=== PATIENT | female | born 1970 | race Caucasian/White ===

== ENCOUNTER 2017-04-07 12:43 | Emergency (ER) | payer BC ==
[2017-04-07 12:47] VITALS: BP 146/89; PULSE 68; RESP 20; TEMP 98.1
--- NOTE | 2017-04-07 13:01 | ED ---
Lower Extremity Injury HPI - General Chief Complaint: Extremity Injury, Lower Stated Complaint: Leg Pain Time Seen by Provider: 04/07/17 12:48 Source: patient, RN notes reviewed Mode of arrival: ambulatory Limitations: no limitations - History of Present Illness Initial Comments: 46-year-old female presents emergency department chief complaint of left hip pain. Patient states she was noted She landed onto her left leg and she felt a pop in her left hip. Patient with walking and pain with certain range of motion of the left hip. Patient states she is able to walk but with an increased swelling to that left hip. Patient states she did not hit her head and there is no other injuries that occurred. Patient states she was concerned due to her pain and discomfort so she thought that she should be evaluated. Patient denies any recent fever, chills, shortness of breath, chest pain, back pain, abdominal pain, nausea vomiting, numbness or tingling, dysuria or hematuria, constipation or diarrhea, headaches or visual changes, or any other current symptoms. - Related Data Home Medications Medication Instructions Recorded Confirmed Hydrochlorothiazide [Hydrodiuril] 25 mg PO DAILY 04/07/17 04/07/17 Ibuprofen [Advil] 200 mg PO Q8HR PRN 04/07/17 04/07/17 Metoprolol Succinate [Toprol XL] 50 mg PO DAILY 04/07/17 04/07/17 Previous Rx's Medication Instructions Recorded Ibuprofen [Motrin] 600 mg PO Q6HR PRN #20 tab 04/07/17 Allergies Allergy/AdvReac Type Severity Reaction Status Date / Time amoxicillin Allergy Unknown SKIN Verified 04/07/17 13:02 TURNED VERY RED codeine AdvReac Rash/Hives Verified 04/07/17 13:02 Penicillins AdvReac Nausea Verified 04/07/17 13:02 Review of Systems ROS Statement: Those systems with pertinent positive or pertinent negative responses have been documented in the HPI. ROS Other: All systems not noted in ROS Statement are negative. Past Medical History Past Medical History: No Reported History History of Any Multi-Drug Resistant Organisms: None Reported Past Surgical History: Section Past Psychological History: No Psychological Hx Reported Smoking Status: Current every day smoker Past Alcohol Use History: None Reported Past Drug Use History: None Reported General Exam - General Exam Comments Initial Comments: General: The patient is awake and alert, in no distress, and does not appear acutely ill. Neck: The neck is supple, there is no tenderness. Cardiovascular: There is a regular rate and rhythm. No murmur, rub or gallop is appreciated. Respiratory: Lungs are clear to auscultation, respirations are non-labored, breath sounds are equal. No wheezes, stridor, rales, or rhonchi. Musculoskeletal: Sensation intact to plus pulses of the left flexion. Full range motion of left foot and ankle. Patient was found motion left knee. Patient has limited range of motion left hip due to pain. She will not fully internally rotate the hip and has pain with the extremes of external rotation. He has full flexion and extension. Patient states that when she stands it feels almost that they are uneven. She does have tenderness to palpation in the gluteal region. Neurological: CN II-XII intact, There are no obvious motor or sensory deficits. Coordination appears grossly intact. Speech is normal. Skin: Skin is warm and dry and no rashes or lesions are noted. Psychiatric: Normal mood and affect. Limitations: no limitations Course Vital Signs 04/07/17 12:44 Temperature 98.1 F Pulse Rate 68 Respiratory 20 Rate Blood Pressure 146/89 O2 Sat by Pulse 97 Oximetry Medical Decision Making - Medical Decision Making 46-year-old female presents emergency room chief complaint of left hip pain. This time patient's x-rays reviewed and negative. At this time we did discuss patient most of his left hip sprain. We'll give her crutches due to her pain with walking. We did also give her follow-up dorsal return parameters all the questions have been answered. She stated that she understood and she is planned. She will be discharged. - Radiology Data Radiology results: report reviewed, image reviewed Disposition Clinical Impression: Sprain of left hip Disposition: HOME SELF-CARE Condition: Stable Instructions: Hip Sprain (ED) Additional Instructions: Please use medication as discussed. Please follow up with family doctor if symptoms have not improved over the next two days. Please return to the emergency room if your symptoms increase or worsen or for any other concerns. Prescriptions: Ibuprofen [Motrin] 600 mg PO Q6HR PRN #20 tab PRN Reason: Pain Referrals: Daniel Sr DO [Primary Care Provider] - 1-2 days Time of Disposition: 13:34
--- NOTE | 2017-04-07 13:29 | XR ---
EXAMINATION TYPE: XR Hip LT and AP Pelvis DATE OF EXAM: 04/07/2017 COMPARISON: NONE HISTORY: Left hip pain following fall TECHNIQUE: AP pelvis and 2 views left hip FINDINGS: Femoral heads articulate with the acetabulum. Symphysis pubis and sacroiliac joints are nor mal. Left femoral head articulates the acetabulum. Joint spaces preserved. No acute fractures evident. IMPRESSION: 1. Normal left hip and AP pelvis
[2017-04-07] MEDS ORDERED: KETOROLAC 60 MG/2 ML VIAL IM STA (13:30)
== END 2017-04-07 13:50 | disposition home or self-care (01) ==
LOC: EC 12:43
DX: S73.102A Unspecified sprain of left hip, initial encounter (principal); F17.200 Nicotine dependence, unspecified, uncomplicated; Z79.899 Other long term (current) drug therapy; Z88.0 Allergy status to penicillin; Z88.5 Allergy status to narcotic agent; X58.XXXA Exposure to other specified factors, initial encounter; Y93.89 Activity, other specified
CPT/HCPCS: 73502; 99283; 96372; J1885

== ENCOUNTER 2024-05-27 08:32 | Emergency (ER) | payer BC ==
[2024-05-27] MEDS ORDERED: SODIUM CHLORIDE 0.9% 1,000 ML BAG ONE (09:24)
[2024-05-27] MEDS ORDERED: KETOROLAC 15 MG/ML 1 ML VIAL ONE (10:34)
== END 2024-05-27 10:35 | disposition home or self-care (01) ==
LOC: EC 08:32
DX: I10 Essential (primary) hypertension (principal)
CPT/HCPCS: 93005; 96361; 96374; 99283